=== PATIENT | male | born 1960 | race Caucasian/White ===

== ENCOUNTER → 2024-10-26 11:24 | Outpatient (REF) | payer MEDICARE, SELFPAY ==
[2024-10-26 12:37] LABS: % Basophils 0.9 % (0-2); % Eosinophils 3.8 % (0-6); % Immature Granulocytes 0.1 % (0-0.5); % Lymphocytes 32.4 % (20.5-51.1); % Monocytes 6.1 % (1.7-9.3); % Neutrophils 56.7 % (42.2-75.2); Absolute Basophils 0.1 10^3/uL (0-0.2); Absolute Eosinophils 0.3 10^3/uL (0-0.7); Absolute Lymphocytes 2.3 10^3/uL (1.2-3.4); Absolute Monocytes 0.4 10^3/uL (0.1-0.6); Hematocrit 35.5 % (39.0-52.0); Hemoglobin 12.1 g/dL (13.0-18.0); Mean Corp Hgb Conc. 34.1 g/dL (33.0-37.0); Mean Corpuscular Hgb 29.3 pg (27.0-31.0); Mean Platelet Volume 10.5 fL (7.4-10.4); Nucleated Red Blood Cells % 0 % (-); Platelet Count 195 10^3/uL (130-400); Red Blood Cell Count 4.13 10^6/uL (4.70-6.10); Red Cell Dist. Width 12.8 % (11.5-14.5)
[2024-10-26 12:44] LABS: Urine Albumin Negative (Neg - Trace); Urine Bilirubin Negative (Negative); Urine Character Clear (Clear); Urine Color Yellow; Urine Glucose Negative (Negative); Urine Ketone Negative (Negative); Urine Leukocyte Negative (Negative); Urine Nitrite Negative (Negative); Urine Occult Blood Negative (Negative); Urine Specific Gravity 1.015 (<1.030); Urine Urobilinogen Negative (Neg - 1+)
[2024-10-26 13:34] LABS: ALT (SGPT) 14 U/L (0-50); AST (SGOT) 18 U/L (17-59); Albumin 4.1 g/dl (3.5-5.0); Alkaline Phosphatase 53 U/L (38-126); Blood Urea Nitrogen 21 mg/dl (9-20); Calcium 9.2 mg/dl (8.4-10.2); Carbon Dioxide 25 mmol/L (22-30); Chloride 105 mmol/L (98-107); Glucose 108 mg/dl (70-99); HDL Cholesterol 40 mg/dl; LDL Cholesterol, Calculated 120 mg/dl; Phosphorus 4.2 mg/dl (2.5-4.5); Potassium 4.7 mmol/L (3.5-5.1); Sodium 138 mmol/L (135-145); Total Bilirubin 0.6 mg/dl (0.2-1.3); Total Cholesterol 191 mg/dl (50-199); Total Protein 6.3 g/dl (6.3-8.2); Triglyceride 155 mg/dl (10-149); Very Low Density Lipoprotein 31 mg/dl (0-30); eGFR > 60.00
[2024-10-26 13:56] LABS: TSH 1.58 uIU/ml (0.47-4.68)
[2024-10-26 16:42] LABS: Folate 15.3 ng/ml (2.76-20); Vitamin B12 546 pg/ml (239-931)
== END ==
LOC: REG 11:24
PROVIDERS: ATTENDING PHYSICIAN Family Medicine
DX: Z00.00 Encounter for general adult medical examination without abnormal findings (principal); I10 Essential (primary) hypertension; G25.0 Essential tremor; N40.0 Benign prostatic hyperplasia without lower urinary tract symptoms; M79.2 Neuralgia and neuritis, unspecified; Z84.81 Family history of carrier of genetic disease; Z79.899 Other long term (current) drug therapy; Z12.5 Encounter for screening for malignant neoplasm of prostate
CPT/HCPCS: 36415; 80053; 80061; 81003; 82607; 82746; 84100; 84443; 85025; G0103

== ENCOUNTER → 2024-11-04 10:22 | Outpatient (REF) | payer MEDICARE, SELFPAY | LOC: RAD 10:22 | PROVIDERS: ATTENDING PHYSICIAN Family Medicine | DX: F17.200 Nicotine dependence, unspecified, uncomplicated (principal); Z13.6 Encounter for screening for cardiovascular disorders | CPT/HCPCS: 76770 ==

== ENCOUNTER 2025-08-15 18:01 | Emergency (ER) | payer MEDICARE, SELFPAY ==
[2025-08-15 18:03] VITALS: BP 148/85
[2025-08-15 18:05] VITALS: BP 148/85
[2025-08-15 18:26] LABS: Hematocrit 42.5 % (39.0-52.0); Hemoglobin 14.9 g/dL (13.0-18.0); Mean Corp Hgb Conc. 35.1 g/dL (33.0-37.0); Mean Corpuscular Volume 83.3 fL (80.0-94.0); Nucleated Red Blood Cells % 0 % (-); Platelet Count 256 10^3/uL (130-400); Red Cell Dist. Width 13.7 % (11.5-14.5)
[2025-08-15 19:01] VITALS: BP 140/96
[2025-08-15 19:13] LABS: Blood Urea Nitrogen 15 mg/dl (9-20); Calcium 9.2 mg/dl (8.4-10.2); Carbon Dioxide 12 mmol/L (22-30); Chloride 102 mmol/L (98-107); Glucose 84 mg/dl (70-99); Potassium 5.0 mmol/L (3.5-5.1); Sodium 135 mmol/L (135-145); eGFR > 60.00
--- NOTE | 2025-08-15 19:22 | ED.GENMED ---
History of Present Illness
General
Chief Complaint: Fall
Source: patient and spouse
Exam Limitations: clinical condition
Time Seen by Provider: 08/15/25 19:00
History of Present Illness
History of Present Illness:
65-year-old male according to his 's been drinking for the last 3 days. Yelling for alcohol at home. Frequent falls. Intoxicated at home. Incontinent stool on himself at home. Multiple falls. She was concern for his safety. Apparently he
digressed from alcohol issues after finding out his father had dementia. Patient has no physical complaint just keeps asking where his is
Review of Systems
Review of Systems
All Other Systems: Not applicable
Respiratory: Reports no symptoms
Cardiac: Reports no symptoms
ABD/GI: Reports no symptoms
Phy Exam
Physical Exam
Physical Exam:
GENERAL: Alert. Scurry screaming outside the room yelling for his . Normocephalic atraumatic.
EYE: Orbits normal.
NECK: Supple, nontender
ENT: Pharynx without erythema
CARDIAC: Regular rate and rhythm without any obvious murmurs.
LUNGS: Clear breath sounds,normal
ABDOMEN: Soft, without focal tenderness or distention
NEUROLOGICAL: Alert and oriented , grossly non-focal. Significantly intoxicated
SKIN: Warm and dry, a few very superficial abrasions to the lower extremity
MUSCULOSKELETAL: No edema,no deformity.Good color
PSYCH: Anxious/agitated
Course
Orders/Labs/Results
Orders:
Orders
08/15/25 18:16
Alcohol Urgent
Basic Metabolic Panel Urgent
Complete Blood Count/With Diff Urgent
08/15/25 19:03
CT Head W/o Iv Contrast Urgent
Comment:
Reason For Exam: fall/slurred speech
08/15/25 19:11
CT Cervical Spine W/o Iv Contr Urgent
Comment:
Reason For Exam: Fall/intoxicated
Cardiac Monitoring- Treatment ONCE
08/15/25 19:22
Midazolam HCl [Versed] 2 mg IV NOW STA
08/15/25 19:25
0.9% Sodium Chloride 1000 ml [Nss] 1,000 ml Mvi, Adult [Multivitamin] 10 ml Thiamine Injection 100 mg IV 500 mls/hr
08/15/25 19:59
Midazolam HCl [Versed] 2 mg IV NOW STA
08/15/25 20:00
Dextrose 5%/0.9%Sodchl 1000 ml [D5/0.9% Sodium Chloride] 1,000 ml IV 250 mls/hr
Restraints - Non Violent As Directed
Justification-Patient:: 2-Protective Intervention
Restraint Type-: Soft Limb-L&R Wrist/4rail
Apply From (date): 08/15/25
Apply from (time): 20:00
Remove (date): 08/16/25
Remove (time): 23:59
08/15/25 21:04
Midazolam HCl [Versed] 2 mg IV NOW STA
Abnormal Lab Results
08/15/25
18:16
WBC 13.2 H 10^3/uL
(4.8-10.8)
Absolute Neuts (auto) 11.1 H 10^3/uL
(1.4-6.5)
Neutrophils % 84.2 H %
(42.2-75.2)
Lymphocytes % 10.8 L %
(20.5-51.1)
Carbon Dioxide 12 L* mmol/L
(22-30)
08/15/25 18:16
08/15/25 18:16
Vital Signs
Initial and Last Documented VS:
Initial Vital Signs
Temp Pulse Resp BP Pulse Ox
98.5 F 80 22 148/85 97
08/15/25 18:03 08/15/25 18:03 08/15/25 18:03 08/15/25 18:03 08/15/25 18:03
Last Documented Vital Signs
Temp Pulse Resp BP Pulse Ox
98.5 F 73 23 166/134 95
08/15/25 18:03 08/15/25 21:00 08/15/25 21:00 08/15/25 21:00 08/15/25 20:55
MDM/Problems Addressed
Differential Diagnosis Includes:
is describing significant alcohol use last 2 to 3 days. Clinically very intoxicated. Nothing to support significant injury but with his alcohol issue and frequent falls we will CT his head and cervical spine. Metabolic acidosis likely
ketoacidosis
*Radiology
Radiology exam reviewed: radiology read reviewed (Small right acute subdural)
*Pulse Oximetry
SaO2: 97
Oxygen Mode of Delivery: Room air
Patient hypoxic: no
*Critical Care Note
Total Time (30-74mins, 75-104mins- exclusive of procedures): Not Applicable
Update Note
Update Note:
Discussed with trauma [facility]. They accept for transfer. Discussed with . She is good with this. Patient also aware and somewhat cooperative and agrees.
ED Attending Note
-
Portions of this chart may have been created with voice recognition software.� Occasional wrong word or��sound alike� substitutions may have occurred due to the inherent limitations of voice recognition software.
Discharge Plan
Departure
Patient Disposition: Acute Care Hospital
Date of Disposition: 08/15/25
Time of Disposition: 20:12
Discharge Problem:
Acute right subdural, Frequent falls, EtOH intoxication, Metabolic acidosis
Referrals:
Leonardo Head DO [Family Provider, Family Practice]
Hospital Transfer
Other hospital: [facility]
I certify that the patient requires transfer: Yes
Discussed case with accepting physician: trauma
Reason for transfer: higher level of care
Interventions
Interventions:
*Risk Screen - Suicide Last Done: 08/15/25 18:07
*General Assessment Last Done: 08/15/25 18:08
*Neglect/Abuse Screening Last Done: 08/15/25 18:07
*ED- Fall Risk Assessment Last Done: 08/15/25 18:11
*ED COVID-19 Vaccine History Last Done: 08/15/25 18:09
*ED Influenza Vaccine History Last Done: 08/15/25 18:09
*Nursing Disposition Last Done: 08/15/25 21:31
ED-Musculoskeletal Assessment Last Done: 08/15/25 18:12
ED- Neurological Assessment Last Done: 08/15/25 18:12
ED-Skin Assessment Last Done: 08/15/25 18:12
Discharge Date and Time
Discharge Date/Time: 08/15/25 21:33
Print Language: OCCITAN
[2025-08-15] MEDS: VERSED 2 MG IV ×3 (19:37→21:05)
--- NOTE | 2025-08-15 20:13 | EDRN ---
VAT team at bedside attempting IV after pt self removed IV. Soft restraints have been applied, refer to prior note.
[2025-08-15] MEDS: MULTIVITAMIN 1011 ML IV (20:51)
[2025-08-15] MEDS: MULTIVITAMIN 1011 MG IV (20:51)
[2025-08-15 20:55] VITALS: BP 187/87
[2025-08-15 21:00] VITALS: BP 166/134
== END 2025-08-15 21:33 | disposition short-term general hospital (02) ==
LOC: EMR 18:01
PROVIDERS: Emergency Medicine; EMERGENCY PHYSICIAN Emergency Medicine; FAMILY PHYSICIAN Family Medicine
DX: S06.5XAA Traumatic subdural hemorrhage with loss of consciousness status unknown, initial encounter (principal); R29.6 Repeated falls; F10.129 Alcohol abuse with intoxication, unspecified; E87.21 Acute metabolic acidosis; M47.812 Spondylosis without myelopathy or radiculopathy, cervical region; Z78.1 Physical restraint status; Z63.79 Other stressful life events affecting family and household; W19.XXXA Unspecified fall, initial encounter
CPT/HCPCS: 99285; 96365; 96374; 96376 ×2; 70450; 72125; 80048; 82077; 85025